=== PATIENT | female | born 1990 | race Caucasian/White ===

== ENCOUNTER 2022-08-23 16:02 | Emergency (ER) | payer BC, SELFPAY ==
[2022-08-23] VITALS (30 sets, daily range): BP systolic 105–144; BP diastolic 71–89; PULSE 81–127; RESP 20; TEMP 36.8; O2SAT 96–100
--- NOTE | 2022-08-23 16:00 | RT.EKG_ITS ---
APPROVED REPORT Exam: Resting ECG Reason for Exam: chest pain Patient Location: E HR:122 bpm ECG Measurements Heart Rate 122 AXIS NC 111 P 48 QRSd 90 QRS 15 QT 309 T 229 QTc 441 Conclusion Sinus tachycardia...rate> 99 Nonspecific repol abnormality, lateral leads...ST dep, T neg, I aVL V5 V6 sinus tachycardia, normal axis, consider rate related st depression laterally
--- NOTE | 2022-08-23 16:15 | DI.RAD_ITS ---
Exam(s) XR PORTABLE CHEST AP EXAM: XR PORTABLE CHEST AP CLINICAL HISTORY: hx of trans of great vessels,chest pain TECHNIQUE: 2D digital imaging was performed of the chest. One image was obtained. An AP view was ob tained. COMPARISON: No exams were available for comparison FINDINGS: MEDIASTINUM: Normal. HEART: Normal. PULMONARY VASCULATURE: Normal. LUNGS: Clear. PLEURAL SPACE: No pleural effusion or pneumothorax. BONE:Within normal limits for the patient's age. Sternal wires are in place. OTHER FINDINGS:Normal. IMPRESSION: No acute pulmonary findings. DATA REPOSITORY: RADIATION DOSE DELIVERED:
--- NOTE | 2022-08-23 16:21 | ED.GENADUL_ITS ---
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 Presents with nonexertional anterior chest pain over the past several days worsening today, presents with tachycardia, EKG sinus tachycardia nonischemic. Patient does endorse history of drug abuse and alcohol abuse has been cutting down with drinking since Wednesday. Denies history of withdrawals, denies history of thromboembolic disease. Bedside ultrasound showing good contractility of LV, no pericardial effusion, no pleural effusion and no B-lines in lung parenchyma. Consider alcohol withdrawal versus dehydration versus musculoskeletal versus costochondritis versus ACS versus less likely complication of prior cardiothoracic surgery, low suspicion for PE or aortic pathology. Will obtain basic labs chest x-ray trial of fluids benzodiazepine, aspirin close reassessment of symptoms if no improvement of tachycardia or symptoms will consider CTA of chest. 7: 54 patient resting comfortably chest pain-free. Vital signs greatly improved. HPI General Date/Time Provider Initiated Documentation: 08/23/22 16:03 . 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, followed yearly by surgical team presents with anterior sharp chest pain nonexertional over the past several days also fast heartbeat. Patient does endorse remote history of drug use and alcohol abuse, was drinking pretty heavily up until Wednesday of last week has cut back to drinking a couple times a week. Denies leg pain or swelling. Denies history of thromboembolic disease. No exogenous estrogen use Related Data Home Medications Medication Instructions Recorded Confirmed doxycycline hyclate 100 mg tablet 100 mg PO BID ##14 07/19/17 08/23/22 Previous Rx's Medication Instructions Recorded doxycycline hyclate 100 mg tablet 100 mg PO BID ##14 07/19/17 Allergies Allergy/AdvReac Type Severity Reaction Status Date / Time No Known Allergies Allergy Unverified 08/23/22 16:09 General Stated Complaint: Chest Pain REGGIE: 2 Review of Systems Narrative: Review of Systems Constitutional: negative Eyes: negative ENT: negative Cardiovascular: Chest pain Respiratory: negative Gastrointestinal: negative : negative Musculoskeletal: negative Skin: negative Neurologic: negative Psych: negative PFSH All Active Problems (Updated 08/23/22 @ 19:54 by Goyo Ascencio MD) Chest pain (Acute) Social History Smoking/Tobacco Use Status: Current-Occasional Tobacco Type: cigars Smoking risk assessment performed?: Yes Alcohol Intake: current Alcohol Intake frequency: 3 or more drinks per day Alcohol type: beer Drug use: Never Substance use type: does not use Do you feel safe at home: Yes Do you feel safe in your relationship?: Yes Exam Narrative Exam Narrative: Physical Examination General: alert, awake, cooperative HEENT: normocephalic, atraumatic; PERRL, EOM intact, conjunctiva normal; no nasal discharge; moist mucous membranes, oral and pharyngeal mucosa normal, tolerating secretions Neck: supple, trachea midline; full ROM Chest: normal to inspection Respiratory: normal respiratory effort, speaking in full sentences, clear to auscultation, no wheezing, rales or rhonchi Cardiac: Tachycardia, regular rhythm, S1S2 intact, no murmurs rubs or gallops GI: abdomen soft, non-tender, non-distended; no palpable mass or hepatosplenomegaly Skin: no lesions, rashes or trauma appreciated Neuro: AAOx3, normal speech, moving all extremities Extremities: No peripheral edema Psych: Appropriate mood and affect Course Vital Signs Vital signs: Vital Signs Temperature 36.8 C 08/23/22 16:05 Pulse 127 H 08/23/22 16:05 Respiratory Rate 20 08/23/22 16:05 Blood Pressure 144/89 H 08/23/22 16:05 Pulse Oximetry 99 08/23/22 16:05 Temperature 36.8 C 08/23/22 16:05 Temperature Source Oral 08/23/22 16:05 Pulse 127 H 08/23/22 16:05 Respiratory Rate 20 08/23/22 16:05 Respiratory Effort Normal 08/23/22 16:10 Blood Pressure 144/89 H 08/23/22 16:05 Blood Pressure Position Supine 08/23/22 16:05 Pulse Oximetry 99 08/23/22 16:05 Oxygen Delivery Method Room Air 08/23/22 16:05 Oxygen Flow Rate 0 08/23/22 16:05 Pain Level 5 08/23/22 16:05
[2022-08-23 16:28] LABS: Abs Immature Grans 0.04 10^3/uL (0.0-0.06); Absolute Basophil Count 0.04 10^3/uL (0.0-0.2); Absolute Eosinophil Count 0.07 10^3/uL (0.0-0.7); Absolute Lymphocyte Count 1.73 10^3/uL (1.2-3.4); Absolute Monocyte Count 0.65 10^3/uL (0.1-0.8); Basophils % 0.4; Eosinophils % 0.8; HCT 42.1 % (36.0-46.0); Immature Grans % 0.4; Lymphocytes % 18.7; MCH 30.9 pg (27.0-33.0); MCHC 35.6 % (32.0-36.0); MCV 87 fL (80-95); MPV 10.1 fL (8.0-11.0); Neutrophils % 72.7; Platelet Count 314 10^3/uL (130-400); RBC 4.85 10^6/uL (3.93-5.22); RDW 12.3 % (11.7-14.6); RDW-SD 38.7 fL; WBC 9.23 10^3/uL (4.4-10.8)
[2022-08-23] MEDS: Normal Saline 1,000 ML 1000 ML IV (16:30)
[2022-08-23] MEDS: Aspirin 81 MG CHEW 324 MG CH (16:30)
[2022-08-23 16:43] LABS: PTT Activated 25.9 sec (21.5-31.9); Prothrombin Time 9.8 sec (9.3-11.0)
[2022-08-23 16:52] LABS: ALT 61 U/L (14-59); AST 31 U/L (15-37); Albumin 4.3 g/dL (3.4-5.0); Alkaline Phosphatase 81 U/L (46-116); Anion Gap 11.3 mmol/L (3-11); BUN 10 mg/dL (7-18); Bilirubin, Total 0.6 mg/dL (0.2-1.0); CO2 25.7 mmol/L (21.0-32.0); CREATININE 0.7 mg/dL (0.55-1.02); Calcium 9.4 mg/dL (8.5-10.1); Chloride 103 mmol/L (98-107); Estimated GFR 118.51 (mL/min/1.73m2); Glucose 107 mg/dL (74-106); NT-proBNP 77 pg/mL (<300); Potassium 3.1 mmol/L (3.5-5.1); Sodium 140 mmol/L (136-145); TSH (W/Ref FT4) 1.23 uIU/mL (0.36-3.74); Troponin I < 50 ng/L (<or=60)
--- NOTE | 2022-08-23 17:05 | DI.VRAD_ITS ---
PROCEDURE INFORMATION: Exam: XR Chest Exam date and time: 08/23/2022 4:20 PM Age: 32 years old Clinical indication: Other: HX of trans of great vessels, chest pain TECHNIQUE: Imaging protocol: Radiologic exam of the chest. Views: 1 view. COMPARISON: No relevant prior studies available. FINDINGS: Lungs: Unremarkable. No consolidation. Pleural spaces: Unremarkable. No pleural effusion. No pneumothorax. Heart/Mediastinum: Cardiomegaly Bones/joints: Median sternotomy IMPRESSION: No acute process Dictated and Authenticated by: Zoltan Elmore MD. Ordering:PREET Nance MD
[2022-08-23 17:10] LABS: *AMPHETAMINES SCREEN URINE Negative (Negative); *BARBITURATES SCREEN URINE Negative (Negative); *BENZODIAZEPINES SCREEN URINE Negative (Negative); Cannabinoids THC Negative (Negative); Cocaine Screen,Urine Negative (Negative); METHADONE URINE SCREEN Negative (Negative); OPIATES URINE SCREEN Negative (Negative)
[2022-08-23 17:21] LABS: Tricyclic Antidepressants Negative (Negative)
[2022-08-23 17:53] LABS: Bilirubin Negative (Negative); Blood Trace-intact (Negative); Clarity Clear (Clear); Glucose Negative (Negative); Ketones Negative (Negative); Leukocyte Esterase Negative (Negative); Nitrite Negative (Negative); Urobilinogen 0.2 mg/dL (Up to 0.2)
[2022-08-23 17:54] LABS: Bacteria Negative HPF (Negative); C & S Indicated? No; Casts Negative LPF (Negative); Crystals Negative HPF (Negative); Epithelial Cells Few HPF (Negative); Mucus Negative (Negative); Other Cells Negative (Negative); RBC 0-2 HPF (0-2); WBC 0-2 HPF (0-5)
[2022-08-23 19:32] LABS: Troponin I < 50 ng/L (<or=60)
--- NOTE | 2022-08-24 08:12 | NUR.NOTE ---
Nursing Note: Accessed chart to determine orders for EKG and to determine whether or not one needs to be cancelled.
--- NOTE | 2022-08-27 09:15 | NUR.NOTE ---
Nursing Note: Accessed chart to determine orders for EKG and to determine whether or not one needs to be cancelled.
== END 2022-08-23 20:10 | disposition home or self-care (01) ==
PROVIDERS: Emergency Provider Emergency Medicine
DX: R07.89 Other chest pain (principal); R00.0 Tachycardia, unspecified
CPT/HCPCS: 36415; 80053; 80307; 81025; 93005; 96360; 99284; 71045; 81003; 81015; 83735; 83880; 84443; 84484; 85025; 85610; 85730; 93010

== ENCOUNTER 2023-07-04 03:20 | Emergency (ER) | payer BC, SELFPAY ==
[2023-07-04] VITALS (25 sets, daily range): BP systolic 117–143; BP diastolic 81–105; PULSE 82–103; RESP 16–26; TEMP 37; O2SAT 96–98
--- NOTE | 2023-07-04 03:15 | RT.EKG_ITS ---
APPROVED REPORT Exam: Resting ECG Reason for Exam: sob Patient Location: E HR:102 bpm ECG Measurements Heart Rate 102 AXIS LA 184 P 48 QRSd 98 QRS 12 QT 325 T 23 QTc 422 Conclusion Sinus tachycardia...rate> 99 Physician: no stemi, flattening of t waves in lateral leads, unchanged from prior ekg on 08/23/22
--- NOTE | 2023-07-04 03:30 | DI.CT_ITS ---
Exam(s) CT THORAX CTA EXAM: CT THORAX CTA CLINICAL HISTORY: left chest pain, hx of tranpos grt vessels. TECHNIQUE: Imaging Protocol: Axial CT angiography was performed with multi-slice acquisition and mu lti-planar reconstructions as well as axial, coronal and sagittal MIP reconstructions. CONTRAST MATERIAL: Intravenous: Omnipaque 350 Contrast volume:100 ml COMPARISON: CR,XR XR PORTABLE CHEST AP from 08/23/2022 FINDINGS: History of transposition of the great vessels. The pulmonary trunk is noted anterior to the aorta. Pulmonary Arteries: No evidence of filling defect to suggest pulmonary emboli. Tracheobronchial tree: No mucous plugging. Mediastinum and [place]: No dominant adenopathy or fluid collection. Pulmonary parenchyma: No consolidation or dominant measurable mass. Pleura: No effusion or pneumothorax. Heart: The heart is mildly dilated. No coronary artery calcifications are seen. Aorta: Thoracic aorta non-dilated. No dissection. Upper abdomen: No acute findings. Bones: Sternal wires. Mild degenerative changes in the thoracic spine. No compression fractures. M ild scoliosis Tubes, Catheters, and Lines: None Soft tissues: Unremarkable. IMPRESSION: No evidence of pulmonary embolism or other acute abnormality. Prior surgery related to transposition of the great vessels. RADIATION DOSE DELIVERED: Total DLP DATA REPOSITORY: All CT scans at this facility are submitted to the National Radiology Data Registry (NRDR) Dose Index Registry (DIR) with the [employer] (ACR). RADIATION OPTIMIZATION: All CT scans at this facility use at least one of these dose optimization te chniques: automated exposure control; mA and/or kV adjustment per patient size (includes targeted exa ms where dose is matched to clinical indication); or iterative reconstruction.
--- NOTE | 2023-07-04 03:36 | W.ED.GENAD ---
HPI General Date/Time Provider Initiated Documentation: 07/04/23 03:22. HPI Narrative: 33-year-old female with a past medical history of transposition of the great vessel with surgical correction as a child at [facility] and no other significant past medical history aside for tobacco abuse who presents today for evaluation of left chest pain. 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 She noticed some slight atypical sensation in her left chest during the day, however this evening she woke up about an hour prior to arrival with a sharp pleuritic chest pain located in the left chest that then radiated towards the left shoulder. It was worse when she take a deep breath. She denies any cough fever or chills. Denies PE risk factors such as recent long car rides, immobilization, recent surgery, prior history of DVT or PE, family history of PE or DVT, morbid obesity, exogenous estrogen and smoking, hemoptysis, history of cancer. Currently she states that the pain is somewhat improved. She denies any other symptoms at this time. No other modifying factors. Related Data Home Medications Medication Instructions Recorded Confirmed doxycycline hyclate 100 mg tablet 100 mg PO BID ##14 07/19/17 08/23/22 Previous Rx's Medication Instructions Recorded doxycycline hyclate 100 mg tablet 100 mg PO BID ##14 07/19/17 Allergies Allergy/AdvReac Type Severity Reaction Status Date / Time No Known Allergies Allergy Unverified 08/23/22 16:09 General Stated Complaint: Orthopedic REGGIE: 3 Review of Systems All systems reviewed & are unremarkable except as noted in HPI and below Exam Narrative Exam Narrative: 1.Const: Well-nourished, Well-developed, appearing stated age 2.Eyes: PERRL, no conjunctival injection, and symmetrical lids. 3.ENT: Atraumatic external nose and ears. Moist MM. Neck: Symmetric, trachea midline, No thyromegaly. 4.CVS: +S1/S2, No murmurs or gallops. Peripheral pulses 2+ and equal in all extremities. Brisk capillary refill in all extremities. No reproducible chest wall tenderness 5.RESP: Unlabored respiratory effort. Clear to auscultation bilaterally. No wheezes rales or rhonchi 6.GI: Soft, Nontender/Nondistended, No hepatosplenomegaly. No guarding or rebound. 7.MSK: Normocephalic/Atraumatic, Extremities w/o deformity or ttp No cyanosis or clubbing, Normal movement of all extremities 8.Skin: Warm, Dry. No rashes or lesions. 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 Sensation grossly intact, no focal neurologic deficits. 10.Psych: (AAO) x3. 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 She noticed some slight atypical sensation in her left chest during the day, however this evening she woke up about an hour prior to arrival with a sharp pleuritic chest pain located in the left chest that then radiated towards the left shoulder. It was worse when she take a deep breath. She denies any cough fever or chills. Denies PE risk factors such as recent long car rides, immobilization, recent surgery, prior history of DVT or PE, family history of PE or DVT, morbid obesity, exogenous estrogen and smoking, hemoptysis, history of cancer. Currently she states that the pain is somewhat improved. She denies any other symptoms at this time. No other modifying factors. Physical exam demonstrates a well-appearing female, no concerning abnormalities on exam. 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 No evidence of pericardial effusion. Differential includes PE, musculoskeletal strain, cardiac etiology. will evaluate for these concerning etiologies, monitor closely and reassess. EKG shows no evidence of STEMI. Mild lateral flattening of T waves. 7:03 AM CTA negative for acute process, no evidence of PE or other abnormality. Troponin and repeat troponin normal, proBNP normal suggesting no evidence of heart strain. CBC normal, EKG benign. On reassessment after Tylenol and Motrin the patient's pain has nearly completely resolved. She feels well and would like to go home. Symptoms appear clinically inconsistent with ACS, dissection or PE. Patient stable for discharge. Recommend Motrin at home, heating pad for muscular strain, and close follow-up with PCP. Recommend avoidance of aggressive movements or significant strains for the left upper extremity. Discussed red flags for which to return. Symptoms very consistent with musculoskeletal strain at this time. I have extensively reviewed the treatment plan and discharge instructions with the patient. I have addressed all patient concerns at this time. The patient was made aware of what symptoms to monitor for that would warrant a return to the emergency department. Discussed the plan with the patient, they demonstrate verbal understanding and agreement with our assessment and plan at this time. The documentation in this chart was dictated using [facility] dictation software. Please excuse any dictation errors. FINDINGS: Pulmonary arteries: No pulmonary embolus is appreciated. Great vessels off aortic arch: Patient with history of transposition of the great vessels. Aorta: No thoracic aortic aneurysm seen. Lungs: No focal consolidation seen. Pleural spaces: No pleural effusion. Heart: No pericardial effusion. Lymph nodes: No acute abnormality seen. Liver: Mild hepatomegaly. Bones/joints: No acute pertinent abnormality seen. Soft tissues: No acute pertinent abnormality seen. IMPRESSION: 1. No acute findings to explain reported symptoms. 2. Nonacute findings as outlined above. Thank you for allowing us to participate in the care of your patient. Dictated and Authenticated by: Анна Arechiga MD 07/04/2023 4:56 AM Eastern Time ([place] & [place]) Quality:SDOH Health Related Social Needs: No Data to Display PFSH All Active Problems (Updated 07/04/23 @ 07:01 by Sergio Will DO) Chest discomfort (Acute) Social History Smoking/Tobacco Use Status: Current-Occasional Tobacco Type: cigars Smoking risk assessment performed?: Yes Alcohol Intake: current Alcohol Intake frequency: 3 or more drinks per day Alcohol type: beer Drug use: Never Substance use type: does not use Do you feel safe at home: Yes Do you feel safe in your relationship?: Yes Discharge Plan Disposition Patient Disposition: Home Condition: Good Discharge Details Chief Complaint: Orthopedic Clinical Impression: Chest discomfort Primary Care Provider: Unknown,Unknown ED Provider: Sergio Will Home Meds and New Rx's Prescriptions: No Action doxycycline hyclate 100 MG tablet 100 mg PO BID Qty: 14 0RF Discharge Instructions Instructions: Thoracic Pain (ED) Additional Instructions: At this time your workup shows no evidence of heart attack, blood clot, tumor or other significant abnormality. Please take Motrin 800 mg every 6 hours as needed. If you notice any worsening of your symptoms, or any new symptoms such as vomiting, diarrhea, fever, chills, shortness of breath, chest pain, numbness, weakness, or fainting , please return immediately to the emergency department for reevaluation. Please follow up with your primary care provider as soon as possible for reassessment and reevaluation. As always, it was a pleasure participating in your medical care today. 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
[2023-07-04 03:44] LABS: Abs Immature Grans 0.02 10^3/uL (0.0-0.06); Absolute Basophil Count 0.05 10^3/uL (0.0-0.2); Absolute Lymphocyte Count 1.61 10^3/uL (1.2-3.4); Absolute Monocyte Count 0.58 10^3/uL (0.1-0.8); Absolute Neutrophil Count 3.15 10^3/uL (1.2-6.7); Basophils % 0.9; Eosinophils % 1.8; HCT 41.2 % (36.0-46.0); HGB 14.5 g/dL (11.2-15.7); Immature Grans % 0.4; Lymphocytes % 29.2; MCHC 35.2 % (32.0-36.0); MCV 88 fL (80-95); MPV 9.8 fL (8.0-11.0); Monocytes % 10.5; Neutrophils % 57.2; Platelet Count 285 10^3/uL (130-400); RBC 4.68 10^6/uL (3.93-5.22); RDW 12.7 % (11.7-14.6); RDW-SD 40.8 fL; WBC 5.51 10^3/uL (4.4-10.8)
[2023-07-04] MEDS: ACETAMINOPHEN 1,000 MG/100 ML BTL 400 MG IVPB (03:45)
[2023-07-04 03:57] LABS: PTT Activated 26.3 sec (23.6-32.8); Prothrombin Time 10.1 sec (9.1-11.1)
[2023-07-04 04:03] LABS: ALT 48 U/L (14-59); AST 37 U/L (15-37); Albumin 3.9 g/dL (3.4-5.0); Alkaline Phosphatase 72 U/L (46-116); Anion Gap 13.8 mmol/L (3-11); BUN 13 mg/dL (7-18); Bilirubin, Total 0.4 mg/dL (0.2-1.0); CO2 22.2 mmol/L (21.0-32.0); CREATININE 0.6 mg/dL (0.55-1.02); Chloride 105 mmol/L (98-107); Estimated GFR 122.23 (mL/min/1.73m2); Glucose 101 mg/dL (74-106); NT-proBNP 20 pg/mL (<300); Potassium 3.7 mmol/L (3.5-5.1); Sodium 141 mmol/L (136-145); Total Protein 7.7 g/dL (6.4-8.2); Troponin I < 50 ng/L (< or =60)
[2023-07-04 04:12] LABS: D-Dimer 299 ng/mlFEU (<500)
[2023-07-04] MEDS: Normal Saline - Diluent 50 ML VIAL IJ (04:41)
[2023-07-04] MEDS: Omnipaque 350 MG/ML 100 ML BTL IJ (04:42)
--- NOTE | 2023-07-04 04:57 | DI.VRAD_ITS ---
PROCEDURE INFORMATION: Exam: CTA Chest With Contrast Exam date and time: 07/04/2023 4:31 AM Age: 33 years old Clinical indication: Left-sided; Patient HX: Left chest pain, HX of tranpos great vessels TECHNIQUE: Imaging protocol: Computed tomographic angiography of the chest with contrast. Exam focused on the arteries. 3D rendering (Not supervised by radiologist): MIP and/or 3D reconstructed images were created by the technologist. Contrast material: OMNIPAQUE 350; Contrast volume: 100 ml; Contrast route: INTRAVENOUS (IV); COMPARISON: No relevant prior studies are available for comparison. FINDINGS: Pulmonary arteries: No pulmonary embolus is appreciated. Great vessels off aortic arch: Patient with history of transposition of the great vessels. Aorta: No thoracic aortic aneurysm seen. Lungs: No focal consolidation seen. Pleural spaces: No pleural effusion. Heart: No pericardial effusion. Lymph nodes: No acute abnormality seen. Liver: Mild hepatomegaly. Bones/joints: No acute pertinent abnormality seen. Soft tissues: No acute pertinent abnormality seen. IMPRESSION: 1. No acute findings to explain reported symptoms. 2. Nonacute findings as outlined above. Dictated and Authenticated by: Анна Arechiga MD. Ordering:LEAH Hill MD
[2023-07-04] MEDS: Lidocaine 5% Patch 1 PATCH (04:59)
[2023-07-04] MEDS: Ketorolac 15 MG/ML VIAL IVP (05:09)
[2023-07-04 06:44] LABS: Troponin I < 50 ng/L (< or =60)
== END 2023-07-04 07:19 | disposition home or self-care (01) ==
PROVIDERS: Emergency Provider Student in an Organized Health Care Education/Training Program
DX: R07.9 Chest pain, unspecified (principal); M25.512 Pain in left shoulder; R00.0 Tachycardia, unspecified; F17.290 Nicotine dependence, other tobacco product, uncomplicated
CPT/HCPCS: 71275; 80053; 93005; 93308; 96374; 96375; 99285; 83880; 84484; 85025; 85379; 85610; 85730; 93010; 99284; J0131; J1885; J3490